=== PATIENT | male | born 1990 | race Caucasian/White ===

== ENCOUNTER 2016-12-22 23:32 | Emergency (ER) | END 2016-12-23 01:57 | disposition home or self-care (01) | DX: S39.011A Strain of muscle, fascia and tendon of abdomen, initial encounter (principal); R40.2412 Glasgow coma scale score 13-15, at arrival to emergency department; X58.XXXA Exposure to other specified factors, initial encounter; Y92.9 Unspecified place or not applicable | CPT/HCPCS: Z7502; Z7610 ==

== ENCOUNTER 2018-10-08 08:12 | Emergency (ER) | payer OTHER ==
[~2018-10-08] VITALS: Ht 182.9 cm; Wt 117.3 kg
[~2018-10-08 08:12] MED LIST: IBUP800T48 PO
[2018-10-08 08:16] VITALS: BP 161/97; PULSE 106; RESP 18; Ht 182.9 cm; Wt 117.3 kg
[2018-10-08] MEDS ORDERED: ONDANSETRON (ODT) 4 MG TAB ODT STA (08:41)
[2018-10-08] MEDS ORDERED: OXYCODONE/ACETAMINOPHEN (5/325) TAB PO ONE (09:00)
[2018-10-08] MEDS ORDERED: NAPR-985 PO (09:40)
[2018-10-08] MEDS ORDERED: CYCL10TA7 PO (09:40)
[2018-10-08] MEDS ORDERED: HYDR-4011 PO (09:40)
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
== END 2018-10-08 09:53 | disposition home or self-care (01) ==
LOC: FTE 08:12
DX: S82.891A Other fracture of right lower leg, initial encounter for closed fracture (principal); V49.49XA Driver injured in collision with other motor vehicles in traffic accident, initial encounter
CPT/HCPCS: 29515; 73610; 76705; Z7502; Z7610